=== PATIENT | female | born 1935 | race Caucasian/White ===

== ENCOUNTER 2017-11-28 00:25 | Day surgery (SDC) | payer MEDICARE, BC ==
[2017-11-28] VITALS (7 sets, daily range): BP systolic 101–163; BP diastolic 48–97
[~2017-11-28] VITALS: Ht 172.7 cm; Wt 71.7 kg
[~2017-11-28 00:25] MED LIST: AZI250 PO; CEP500 PO; DOC100 PO; FAM20 PO; FERR159T PO; GUAI480S48 PO; GUALA600 PO; IBU600 PO; LIS5 PO; LOR5 PO; LOR5/325 PO; LOSA25TA50 PO; OND4 PO; PANT40TA65 PO; PROM12.546 PO
[2017-11-28] MEDS ORDERED: PROPOFOL EMUL(*) 10MG/ML 20 ML 40 ML ONE (07:28)
--- NOTE | 2017-11-28 07:29 | Post Operative Progress Note ---
Post Operative Progress Note Date: Nov 28, 2017 Time: 09:43 Surgeon: edmund Anesthesia: dr hughes Pre-Op Diagnosis: anemia Post-Op Diagnosis: normal egd and sigmoid diverticulosis Procedure(s): egd and colonoscopy ALISA RODRIGUEZ MD Nov 28, 2017 07:29
--- NOTE | 2017-11-28 07:30 | Short(Outpt) Discharge Summary ---
Discharge Summary Reason for Hosp/Final Diag: (1) IRON DEFICIENCY ANEMIA SECONDARY TO BLOOD LOSS (CHRONIC) Hospital Course & Plan: egd was normal and colonoscopy revealed diverticulosis in the sigmoid colon Departure Discharge to: Home Discharge Instructions Home Meds Reported Medications Ferrous Sulfate, Dried (IRON) 159 Mg Tablet.er, 130 MG PO QDAY 11/19/17 Pantoprazole Sodium (PANTOPRAZOLE SODIUM) 40 Mg Tablet.dr, 40 MG PO BID, TAB.SR 11/19/17 Losartan Potassium (LOSARTAN POTASSIUM) 25 Mg Tablet, 25 MG PO QDAY 11/19/17 Diet: Regular Activity: As Tolerated ALISA RODRIGUEZ MD Nov 28, 2017 07:30
[2017-11-28] MEDS ORDERED: LIDOCAINE/SOD BICARB 8.4% SYR ID ONE (07:50)
[2017-11-28] MEDS ORDERED: MIDAZOLAM 2 MG/2 ML VIAL IVP ONE (07:50)
[2017-11-28] MEDS ORDERED: NORMOSOL R SOLN(*) 1000 ML BAG 1,000 ML IV PRN (07:50)
--- NOTE | 2017-11-28 14:55 | OPERATIVE REPORT 1 ---
EVENT DATE: November 28, 2017 SURGEON: Humberto Narvaez MD ANESTHESIOLOGIST: Tala Junior MD ANESTHESIA: Sedation PREOPERATIVE DIAGNOSIS Anemia. POSTOPERATIVE DIAGNOSIS Sigmoid diverticulosis. PROCEDURE PERFORMED Colonoscopy. DESCRIPTION OF PROCEDURE The patient was placed in the left lateral decubitus position and given intravenous sedation. Perianal examination revealed some external hemorrhoidal skin tags. No fissures or fistulas. Digital exam was unremarkable. A flexible colonoscope was inserted and advanced to the cecum. She had an excellent bowel prep. Ileocecal valve and base of the cecum were identified. The scope was slowly withdrawn. Care was taken to look behind the haustral folds. No abnormalities were noted in the cecum, right colon, transverse, or descending colon. She had extensive diverticulosis in the sigmoid colon, but no inflammation, no narrowings, and no other abnormalities. The scope was slowly withdrawn. The rectum was normal. The scope was retroflexed, and that appeared to be normal. [facility]
--- NOTE | 2017-11-28 15:05 | OPERATIVE REPORT 1 ---
EVENT DATE: November 28, 2017 SURGEON: Humberto Narvaez MD ANESTHESIOLOGIST: Tala Junior MD ANESTHESIA: Sedation. PREOPERATIVE DIAGNOSIS Anemia. POSTOPERATIVE DIAGNOSIS Normal esophagogastroduodenoscopy. PROCEDURE PERFORMED Esophagogastroduodenoscopy. DESCRIPTION OF PROCEDURE The patient was placed in the left lateral decubitus position and given intravenous sedation. The flexible gastroscope was inserted. The esophagus appeared to be normal and distended nicely. No narrowings, no inflammation, no irritation. The GE junction was at 40 cm and distinct. We entered the gastric remnant. The anastomosis was widely patent. We passed through this and down into the duodenum for quite a number of centimeters. No inflammation or ulceration was noted. The scope was slowly withdrawn. No marginal ulceration was noted. The gastric remnant was normal. The scope was retroflexed, and no abnormalities were noted. The patient tolerated the procedure well with no apparent complications. [facility]
== END 2017-11-28 10:54 | disposition short-term general hospital (02) ==
LOC: OR 00:25
PROVIDERS: ATTEND Surgery
DX: K57.30 Diverticulosis of large intestine without perforation or abscess without bleeding (principal); D64.9 Anemia, unspecified
CPT/HCPCS: 00811; 43235; 45378; J2704

== ENCOUNTER → 2018-03-05 | Outpatient (CLI) | payer MEDICARE, BC ==
[2018-03-05 12:21] LABS: PLATELET COUNT, AUTOMATED 237 K/uL (150-450)
== END ==
LOC: LAB 11:47
PROVIDERS: ATTEND Family Medicine
DX: I10 Essential (primary) hypertension (principal); R53.83 Other fatigue
CPT/HCPCS: 36415; 82040; 82247; 82310; 82374; 82435; 82565; 82947; 84075; 84132; 84155; 84295; 84443; 84450; 84460; 84520; 85025

== ENCOUNTER → 2018-03-11 | Outpatient (CLI) | payer MEDICARE, BC ==
--- NOTE | 2018-03-11 15:11 | RADIOLOGY IMAGING REPORT ---
FACILITY: [facility] [place] PATIENT NAME: Helen Herr : 1935 MR: [id number] V: [id number] EXAM DATE: ORDERING PHYSICIAN: ADRIENNE REYES TECHNOLOGIST: Location: [facility] [place] Patient: Helen Herr : 1935 Visit/Account:[id number] Date of Sevice: 03/11/2018 DEXA Scan Clinical history: Osteopenia. Comparison: None available. LUMBAR SPINE: The bone mineral density (BMD) measured from L1-L4 correlates with a Z-score -0.1 and a T-score of -1 .8 which is osteopenia as defined by the World Health Organization. The corresponding risk of fractu re in the lumbar spine is 3X compared with a young adult reference population. HIP: Bone mineral density (BMD) measured in the Left total hip region correlates with a Z-score 0.2 and a T-score of -1.9 which is osteopenia as defined by the World Health Organization. The corresponding r isk of fracture in the hip is 4X compared with a young adult reference population. Bone mineral density (BMD) measured in the Femoral Neck region measures 0.766 g/cm2. Impression: 1. Lumbar spine: Osteopenia. 2. Left Hip: Osteopenia. 3. Femoral Neck: Bone Mineral Density is 0.766 g/cm2 The next DEXA scan of this patient should include the following sites: L1-L4 and the left hip. FRAX? WHO Fracture Risk Assessment Tool link: <http://www.shef.ac.uk/FRAX/tool.jsp?[email or web address]> PLEASE NOTE: 1) The World Health Organization defines low BMD as follows: T-score Normal > -1 Osteopenia < -1 and > -2.5 Osteoporosis < -2.5 without fractures Established osteoporosis < -2.5 with fractures 2) In general, you may wish to consider: Diagnosis Treatment Follow-up DEXA Normal BMD Prevention 2-3 years Osteopenia Prevention/therapy 1-2 years Osteoporosis Therapy Yearly 3) Fracture risk estimated from the T-score is more accurate for vertebral fractures (often spontane ous) than for hip fractures. Report Dictated By: Tj Bueno DO at 03/11/2018 2:57 PM Report E-Signed By: Tj Bueno DO at 03/11/2018 3:07 PM WSN:[id number]
--- NOTE | 2018-03-12 11:46 | RADIOLOGY IMAGING REPORT ---
FACILITY: [facility] PATIENT NAME: DENISSE MEZA : [id number] MR: [id number] V: [id number] EXAM DATE: ORDERING PHYSICIAN: ADRIENNE REYES TECHNOLOGIST: Viridiana George PROCEDURE: MAMMOGRAM SCREENING LEFT UNILATERAL WITH CAD ASSISTED INTERPRETATION & 3D TOMOSYNTHESIS COMPARISON: Prior mammograms 09/30/12. INDICATIONS: SCREENING FINDINGS: Mildly heterogeneous fibroglandular tissue is seen throughout the Left breast. The parenchymal pattern has remained stable allowing for difference in mammographic technique & patient positioning. There is no evidence of malignant appearing mass, malignant appearing calcifications or other secondary sign of malignancy in the Left breast. DIAGNOSTIC CATEGORY 1--NEGATIVE. RECOMMENDATIONS: ROUTINE MAMMOGRAM AND CLINICAL EVALUATION. IMPRESSION: BIRADS 1: Negative No significant abnormality of the Left breast is seen. Dictated by: Amina Grover M.D. on 03/11/2018 at 15:55 Transcribed by: ESTEBAN on 03/12/2018 at 8:07 Approved by: Amina Grover M.D. on 03/12/2018 at 11:45 [facility]
== END ==
LOC: MAMO 01:00 → EDSTATUS 06:49 → MAMO 08:00 → EDSTATUS 09:15 → MAMO 13:31
PROVIDERS: ATTEND Family Medicine
DX: Z13.820 Encounter for screening for osteoporosis (principal); Z12.31 Encounter for screening mammogram for malignant neoplasm of breast; M85.88 Other specified disorders of bone density and structure, other site
CPT/HCPCS: 77063; 77065; 77080

== ENCOUNTER → 2018-08-06 | Outpatient (REF) | payer MEDICARE, BC ==
[~2018-08-06] MED LIST changes: +LISI5TAB25 PO; -LOSA25TA50 PO; +LOSA25TA52 PO
== END ==
LOC: ZZSENDIN 16:46
PROVIDERS: ATTEND Family Medicine
DX: I10 Essential (primary) hypertension (principal)
CPT/HCPCS: 36415; 82310; 82374; 82435; 82565; 82947; 84132; 84295; 84520

== ENCOUNTER → 2018-08-21 | Outpatient (CLI) | payer MEDICARE, BC | LOC: LAB 13:45 | PROVIDERS: ATTEND Family Medicine | DX: I10 Essential (primary) hypertension (principal) | CPT/HCPCS: 36415; 82310; 82374; 82435; 82565; 82947; 84132; 84295; 84520 ==

== ENCOUNTER → 2018-10-30 | Outpatient (CLI) | payer MEDICARE, BC ==
[~2018-10-30] MED LIST changes: +ACET-2146 PO; +AMLO-111 PO; +CALC-29 PO; +CALC500T6 PO; +LISI-362 PO; +LOSA-51 PO; -LOSA25TA52 PO; +LOSA25TA57 PO; +PNEU0.5D3 IM
== END ==
LOC: LAB 09:25
PROVIDERS: ATTEND Family Medicine
DX: I10 Essential (primary) hypertension (principal)
CPT/HCPCS: 36415; 82310; 82374; 82435; 82565; 82947; 84132; 84295; 84520

== ENCOUNTER → 2018-12-03 | Outpatient (CLI) | payer MEDICARE, BC ==
[~2018-12-03] MED LIST changes: -AMLO-111 PO; +AMLO-125 PO; +LOSA-54 PO
== END ==
LOC: LAB 08:29
PROVIDERS: ATTEND Family Medicine
DX: I10 Essential (primary) hypertension (principal)
CPT/HCPCS: 36415; 82310; 82374; 82435; 82565; 82947; 84132; 84295; 84520

== ENCOUNTER 2018-12-15 08:40 | Inpatient (IN) | payer MEDICARE, BC ==
[~2018-12-15] VITALS: Ht 170.2 cm; Wt 73.9 kg
--- NOTE | 2018-12-15 08:54 | ER Report ---
History and Physical Time Seen By MD: 08:54 Hx. of Stated Complaint: PT REPORTS DIZZINESS, WEAKNESS, BLACK STOOLS, PAIN IN ABD X 2 DAYS HPI/ROS CHIEF COMPLAINT: weakness, dizzy, black and maroon in stools HISTORY OF PRESENT ILLNESS: This is an 83 year old female. She has had two days of black and maroon colored stools. She has been weak and dizzy. She has some lower abdominal pain and lower back pain as well. No fevers or chills. She has a history of peptic ulcer disease and GI bleeding in the past. Last time was here at [facility], admitted and then transferred because of a pulmonary embolism at the same time. She had endoscopy and a derrick removable filter placed that has since been removed. She has no shortness of breath. No other bleeding such as bruising, blood in urine, or nosebleeds. She denies having fevers or chills. No cough. No chest pain. She is not on any blood thinners or aspirin at this time. Allergies: Coded Allergies: nut - unspecified (Unverified Allergy, Severe, Throat swelling and hives, 12/15/18) brazil nuts Uncoded Allergies: Figgs (Allergy, Severe, Throat Swelling and Hives, 03/05/18) Home Meds Active Scripts Losartan/Hydrochlorothiazide (LOSARTAN-HCTZ 100-25 MG TAB) 1 Each Tablet, 1 EACH PO QDAY for 90 Days, #90 TAB Prov:ADRIENNE REYES MD 12/03/18 Reported Medications Calcium Carbonate/Vitamin D3 (Calcium 600 + Vit D 800 Tab) 1 Each Tablet, 1 TAB PO DAILY 09/17/18 Acetaminophen 500 Mg Tab (ACETAMINOPHEN EXTRA STRENGTH) 500 Mg Tablet, 2 TAB PO BID, TAB 09/03/18 Reviewed Nurses Notes: Yes Hx Smoking: Yes (Smoked some in college and quit more than 50 years ago) Smoking Status: Former Smoker Exposure to Second Hand Smoke?: Yes Hx Substance Use Disorder: No Hx Alcohol Use: Yes Constitutional Vital Sign - Last 24 Hours 12/15/18 12/15/18 12/15/18 12/15/18 08:45 08:46 09:00 09:15 Temp 97.2 Pulse 98 86 76 Resp 18 12 B/P (MAP) 133/72 133/72 (92) Pulse Ox 88 90 90 O2 Delivery Room Air 12/15/18 12/15/18 09:45 09:46 Pulse 88 B/P (MAP) 132/71 (91) Pulse Ox 91 Physical Exam General Appearance: The patient is alert. No acute distress. Eyes: Pupils are equal, round. No pallor, injection or icterus. ENT: Mucous membranes are moist. Normal oral mucosa. Posterior oropharynx is normal. Neck: Supple and non tender. Respiratory: Lungs are clear to auscultation. Cardiovascular: Regular rate and rhythm. No murmurs, gallops or rubs. Normal capillary refill. No edema. Gastrointestinal: Abdomen is soft, nontender to palpation. Nondistended. No rebound or guarding. No masses or organomegaly. Normal active bowel sounds. No costovertebral angle tenderness with percussion. Neurological: Alert and oriented x3. No focal neurologic deficits Skin: Warm and dry. No rashes. Musculoskeletal: Extremities are nontender. No tenderness in palpation of the cervical, thoracic and lumbar spine, or the paraspinous areas of the back. DIFFERENTIAL DIAGNOSIS: After history and physical exam, differential diagnosis was considered for patient with abdominal pain, melena, weakness, likely due to GI bleeding with history of peptic ulcer disease in the past. Medical Decision Making Data Points Result Diagram: 12/15/18 0847 12/15/18 0847 Laboratory Hematology Test 12/15/18 08:47 12/15/18 09:05 12/15/18 09:35 Red Blood Count 3.62 M/uL (4.17-5.56) Mean Corpuscular Volume 89.6 fL (80.0-96.0) Mean Corpuscular Hemoglobin 29.2 pg (26.0-33.0) Mean Corpuscular Hemoglobin Concent 32.6 g/dL (32.0-36.0) Red Cell Distribution Width 15.8 % (11.5-14.5) Mean Platelet Volume 7.4 fL (7.2-11.1) Neutrophils (%) (Auto) 47.9 % (39.4-72.5) Lymphocytes (%) (Auto) 34.6 % (17.6-49.6) Monocytes (%) (Auto) 13.9 % (4.1-12.4) Eosinophils (%) (Auto) 2.6 % (0.4-6.7) Basophils (%) (Auto) 1.0 % (0.3-1.4) Nucleated RBC Relative Count (auto) 0.1 /100WBC Neutrophils # (Auto) 1.5 K/uL (2.0-7.4) Lymphocytes # (Auto) 1.1 K/uL (1.3-3.6) Monocytes # (Auto) 0.4 K/uL (0.3-1.0) Eosinophils # (Auto) 0.1 K/uL (0.0-0.5) Basophils # (Auto) 0.0 K/uL (0.0-0.1) Nucleated RBC Absolute Count (auto) 0.00 K/uL Prothrombin Time 13.6 seconds (12.0-14.4) Prothromb Time International Ratio 1.03 Activated Partial Thromboplast Time 29 seconds (23-35) Sodium Level 130 mmol/L (137-145) Potassium Level 5.0 mmol/L (3.5-5.0) Chloride Level 103 mmol/L (98-107) Carbon Dioxide Level 22 mmol/L (22-31) Blood Urea Nitrogen 84 mg/dl (7-18) Creatinine 1.10 mg/dl (0.52-1.04) Glomerular Filtration Rate Calc 47.2 Random Glucose 107 mg/dl (75-110) Calcium Level 8.9 mg/dl (8.4-10.2) Total Bilirubin 0.3 mg/dl (0.2-1.3) Aspartate Amino Transf (AST/SGOT) 28 U/L (0-35) Alanine Aminotransferase (ALT/SGPT) 22 U/L (0-56) Alkaline Phosphatase 68 U/L (0-126) Total Protein 6.0 g/dl (6.3-8.2) Albumin 3.3 g/dl (3.5-5.0) Stool Occult Blood (IFOB) Positive (NEGATIVE) Urine Color Straw Urine Clarity Clear Urine pH 5.0 pH (4.8-9.5) Urine Specific [place] 1.014 Urine Protein Negative mg/dL (NEGATIVE) Urine Glucose (UA) Negative mg/dL (NEGATIVE) Urine Ketones Negative mg/dL (NEGATIVE) Urine Blood Negative (NEGATIVE) Urine Nitrite Negative (NEGATIVE) Urine Bilirubin Negative (NEGATIVE) Urine Urobilinogen Negative mg/dL (0.2-1.9) Urine Leukocyte Esterase Negative (NEGATIVE) Urine RBC <1 /HPF (0-2/HPF) Urine WBC 1 /HPF (0-5/HPF) Urine Squamous Epithelial Cells Moderate /LPF (</=FEW) Urine Bacteria Negative /HPF (NONE-FEW) Urine Mucus None /HPF (NONE-FEW) Chemistry Test 12/15/18 08:47 12/15/18 09:05 12/15/18 09:35 White Blood Count 3.2 k/uL (4.5-11.0) Red Blood Count 3.62 M/uL (4.17-5.56) Hemoglobin 10.6 g/dL (12.0-16.0) Hematocrit 32.4 % (34.0-47.0) Mean Corpuscular Volume 89.6 fL (80.0-96.0) Mean Corpuscular Hemoglobin 29.2 pg (26.0-33.0) Mean Corpuscular Hemoglobin Concent 32.6 g/dL (32.0-36.0) Red Cell Distribution Width 15.8 % (11.5-14.5) Platelet Count 246 K/uL (150-450) Mean Platelet Volume 7.4 fL (7.2-11.1) Neutrophils (%) (Auto) 47.9 % (39.4-72.5) Lymphocytes (%) (Auto) 34.6 % (17.6-49.6) Monocytes (%) (Auto) 13.9 % (4.1-12.4) Eosinophils (%) (Auto) 2.6 % (0.4-6.7) Basophils (%) (Auto) 1.0 % (0.3-1.4) Nucleated RBC Relative Count (auto) 0.1 /100WBC Neutrophils # (Auto) 1.5 K/uL (2.0-7.4) Lymphocytes # (Auto) 1.1 K/uL (1.3-3.6) Monocytes # (Auto) 0.4 K/uL (0.3-1.0) Eosinophils # (Auto) 0.1 K/uL (0.0-0.5) Basophils # (Auto) 0.0 K/uL (0.0-0.1) Nucleated RBC Absolute Count (auto) 0.00 K/uL Prothrombin Time 13.6 seconds (12.0-14.4) Prothromb Time International Ratio 1.03 Activated Partial Thromboplast Time 29 seconds (23-35) Glomerular Filtration Rate Calc 47.2 Calcium Level 8.9 mg/dl (8.4-10.2) Total Bilirubin 0.3 mg/dl (0.2-1.3) Aspartate Amino Transf (AST/SGOT) 28 U/L (0-35) Alanine Aminotransferase (ALT/SGPT) 22 U/L (0-56) Alkaline Phosphatase 68 U/L (0-126) Total Protein 6.0 g/dl (6.3-8.2) Albumin 3.3 g/dl (3.5-5.0) Stool Occult Blood (IFOB) Positive (NEGATIVE) Urine Color Straw Urine Clarity Clear Urine pH 5.0 pH (4.8-9.5) Urine Specific [place] 1.014 Urine Protein Negative mg/dL (NEGATIVE) Urine Glucose (UA) Negative mg/dL (NEGATIVE) Urine Ketones Negative mg/dL (NEGATIVE) Urine Blood Negative (NEGATIVE) Urine Nitrite Negative (NEGATIVE) Urine Bilirubin Negative (NEGATIVE) Urine Urobilinogen Negative mg/dL (0.2-1.9) Urine Leukocyte Esterase Negative (NEGATIVE) Urine RBC <1 /HPF (0-2/HPF) Urine WBC 1 /HPF (0-5/HPF) Urine Squamous Epithelial Cells Moderate /LPF (</=FEW) Urine Bacteria Negative /HPF (NONE-FEW) Urine Mucus None /HPF (NONE-FEW) Coagulation Test 12/15/18 08:47 Prothrombin Time 13.6 seconds Prothromb Time International Ratio 1.03 Activated Partial Thromboplast Time 29 seconds Urinalysis Test 12/15/18 09:35 Urine Color Straw Urine Clarity Clear Urine pH 5.0 pH (4.8-9.5) Urine Specific [place] 1.014 Urine Protein Negative mg/dL (NEGATIVE) Urine Glucose (UA) Negative mg/dL (NEGATIVE) Urine Ketones Negative mg/dL (NEGATIVE) Urine Blood Negative (NEGATIVE) Urine Nitrite Negative (NEGATIVE) Urine Bilirubin Negative (NEGATIVE) Urine Urobilinogen Negative mg/dL (0.2-1.9) Urine Leukocyte Esterase Negative (NEGATIVE) Urine RBC <1 /HPF (0-2/HPF) Urine WBC 1 /HPF (0-5/HPF) Urine Squamous Epithelial Cells Moderate /LPF (</=FEW) Urine Bacteria Negative /HPF (NONE-FEW) Urine Mucus None /HPF (NONE-FEW) EKG/Imaging Imaging CT ABDOMEN PELVIS W/O CON HISTORY: Abdominal pain. Melena. TECHNIQUE: Axial images were obtained through the abdomen and pelvis without intravenous contrast . One of the following dose optimization techniques was utilized in the performance of this exam: automated exposure control; adjustment of the mA and/or kv according to patient size; or use of iterative reconstruction technique. Specific details can be referenced in the facility's radiology CT exam operational policy. CONTRAST: None COMPARISON: CT abdomen/pelvis 03/06/2011 FINDINGS: Visualized lung bases: Left lower lobe calcified granuloma. Hepatobiliary: 2.2 x 2.1 cm cystic lesion within the left lobe (image 26). Multiple gallstones. Spleen: Negative. Adrenals: Stable 2.4 x 1.5 cm left adrenal gland nodule consistent with an adenoma. Stable 1.7 x 1.0 cm right adrenal gland nodule consistent with an adenoma. Pancreas: Negative. Kidneys/ureters/bladder: Interval left nephrectomy. No radiopaque right renal or right ureteral calculus. No right hydronephrosis. Bowel/peritoneum/mesentery: Moderate colonic diverticulosis without acute inflammatory change. No bowel obstruction, free air or ascites. Gastrojejunostomy noted. Vessels: Moderate arterial calcifications Lymph nodes: Negative. Pelvic genitourinary: Hysterectomy Bones/body wall: Negative. Other findings: None significant IMPRESSION: 1. No acute inflammatory process within the abdomen and pelvis. 2. Gallstones. 3. Moderate colonic diverticulosis. 4. 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 Report Dictated By: Wyatt Ching MD at 12/15/2018 9:47 AM ED Course/Re-evaluation Clinical Indication for ER IV: Hydration, IV Access ED Course Patient has a positive occult blood in the stool which is melanotic on exam. H&H shows a hemoglobin of 10.6, down from 13 more recently. History of peptic ulcer disease suggests this is most likely upper GI in nature. I discussed the case with Dr. Unger. He is not correctional maintenance technician, but will be available in the morning. He asked to go ahead and have her take clear liquids and nothing by mouth after midnight and he would be able to do an upper endoscopy tomorrow morning. I also talked to our hospitalist, Dr. Sampson, who accepted the patient for admission. I did talk to the patient about risks associated with staying here at [facility] rather than transfer where we would not have a surgeon available immediately to do an endoscopy or treat bleeding should it accelerate and worsen. The patient expresses understanding of this but still would like to stay here at [facility]. Decision to Disposition Date: Dec 15, 2018 Decision to Disposition Time: 11:06 Depart Departure Latest Vital Signs Vital Signs Date Time Temp Pulse Resp B/P (MAP) Pulse Ox O2 Delivery O2 Flow Rate FiO2 12/15/18 09:46 132/71 (91) 12/15/18 09:45 88 91 12/15/18 09:15 12 12/15/18 08:45 97.2 Room Air Impression: Primary Impression: Upper gastrointestinal hemorrhage Additional Impressions: PUD (peptic ulcer disease) IRON DEFICIENCY ANEMIA SECONDARY TO BLOOD LOSS (CHRONIC) Condition: Improved Disposition: Admitted from ER Referrals: ADRIENNE REYES MD (PCP) Problem Qualifiers ANA PASTRANA MD Dec 15, 2018 08:54
[2018-12-15 09:13] LABS: PLATELET COUNT, AUTOMATED 246 K/uL (150-450)
[2018-12-15 09:22] LABS: INR 1.03
--- NOTE | 2018-12-15 10:01 | RADIOLOGY IMAGING REPORT ---
FAC[place] [facility] [place]IENT NAME: Helen Herr : 1935 MR: [id number] V: [id number] EXAM DATE: ORDERING PHYSICIAN: ANA PASTRANA TECHNOLOGIST: Location: [facility] Patient: Helen Herr : 1935 Visit/Account:[id number] Date of Sevice: 12/15/2018 CT ABDOMEN PELVIS W/O CON HISTORY: Abdominal pain. Melena. TECHNIQUE: Axial images were obtained through the abdomen and pelvis without intravenous contrast . One of the following dose optimization techniques was utilized in the performance of this exam: autom ated exposure control; adjustment of the mA and/or kv according to patient size; or use of iterative reconstruction technique. Specific details can be referenced in the facility's radiology CT exam oper ational policy. CONTRAST: None COMPARISON: CT abdomen/pelvis 03/06/2011 FINDINGS: Visualized lung bases: Left lower lobe calcified granuloma. Hepatobiliary: 2.2 x 2.1 cm cystic lesion within the left lobe (image 26). Multiple gallstones. Spleen: Negative. Adrenals: Stable 2.4 x 1.5 cm left adrenal gland nodule consistent with an adenoma. Stable 1.7 x 1. 0 cm right adrenal gland nodule consistent with an adenoma. Pancreas: Negative. Kidneys/ureters/bladder: Interval left nephrectomy. No radiopaque right renal or right ureteral deni culus. No right hydronephrosis. Bowel/peritoneum/mesentery: Moderate colonic diverticulosis without acute inflammatory change. No b owel obstruction, free air or ascites. Gastrojejunostomy noted. Vessels: Moderate arterial calcifications Lymph nodes: Negative. Pelvic genitourinary: Hysterectomy Bones/body wall: Negative. Other findings: None significant IMPRESSION: 1. No acute inflammatory process within the abdomen and pelvis. 2. Gallstones. 3. Moderate colonic diverticulosis. 4. 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 Report Dictated By: Wyatt Ching MD at 12/15/2018 9:47 AM Report E-Signed By: Wyatt Ching MD at 12/15/2018 9:55 AM [id number]
[2018-12-15] MEDS ORDERED: PANTOPRAZOLE SOD(*)40 MG VIAL 80 MG in NS(*) 0.9% 100 ML BAG 100 ML IVPB ONE (11:05)
[2018-12-15 12:02] VITALS: BP 118/54
[2018-12-15] MEDS ORDERED: NS(*) 0.9% 500 ML BAG 500 ML IV PRN (14:50)
--- NOTE | 2018-12-15 16:06 | History & Physical ---
History of Present Illness History of Present Illness 83yo female with h/o PUD, HTN and PE who came to the ER for bloody stools and dizziness. She was in her normal state of health until 2 days ago. She had 4 bloody/black BM throughout the day. She might have had some abdominal pain, but it was very mild and she thought it was related to her back. Yesterday, she bloody/black stools about every 2 hours with the last one being about 9pm. She hasn't had anything since. Today, her daughter came to visit. The patient was still in bed and became very dizzy with trying to get to the bathroom, so was brought in. She denies cp/sob/n/v. She doesn't take ASA or NSAIDs. She hasn't been on anticoagulation for the PE for over a year. She had a partial gastrect bharath in her teens for a GI bleed. About 2 years ago, she had a upper GI bleed that required cautery. That event was complicated by a PE, so she was transferred and had to have an IVC placed. History Problems: (1) Pulmonary embolism Status: Resolved (2) Adenocarcinoma of kidney Status: Chronic (3) S/p nephrectomy Status: Resolved (4) History of breast cancer (5) Osteoporosis (6) OA (osteoarthritis) (7) Hypertension Status: Acute (8) PUD (peptic ulcer disease) Status: Chronic (9) Upper gastrointestinal hemorrhage Status: Acute Home Meds Active Scripts Losartan/Hydrochlorothiazide (LOSARTAN-HCTZ 100-25 MG TAB) 1 Each Tablet, 1 EACH PO QDAY for 90 Days, #90 TAB Prov:ADRIENNE REYES MD 12/03/18 Reported Medications Calcium Carbonate/Vitamin D3 (Calcium 600 + Vit D 800 Tab) 1 Each Tablet, 1 TAB PO DAILY 09/17/18 Acetaminophen 500 Mg Tab (ACETAMINOPHEN EXTRA STRENGTH) 500 Mg Tablet, 2 TAB PO BID, TAB 09/03/18 Allergies: Coded Allergies: nut - unspecified (Unverified Allergy, Severe, Throat swelling and hives, 12/15/18) brazil nuts Uncoded Allergies: Figgs (Allergy, Severe, Throat Swelling and Hives, 03/05/18) Patient History: FH: cancer FH: chemotherapy FH: colon cancer BROTHER OR SISTER FH: emphysema MOTHER, , Age:82 FH: lung cancer FATHER BROTHER OR SISTER FH: ovarian cancer BROTHER OR SISTER Hx Smoking: Yes (Smoked some in college and quit more than 50 years ago) Smoking Status: Former Smoker Exposure to Second Hand Smoke?: Yes Caffeine Intake: Coffee, Tea Caffeine/Cups Per Day: 1x/week Hx Alcohol Use: Yes Alcohol Used: Beer Hx Substance Use Disorder: No Social Drug Use: Never Review of Systems All Systems Reviewed/Normal: Yes, Except as Noted Exam Vital Signs Vital Signs Date Time Temp Pulse Resp B/P (MAP) Pulse Ox O2 Delivery O2 Flow Rate FiO2 12/15/18 12:30 97 Nasal Cannula 1.5 12/15/18 12:02 98.5 72 18 118/54 (75) General Appearance: Alert, Awake, No Acute Distress (Pale) Neuro: No Gross deficits ENT: Moist Mucous Membranes Cardiovascular: Regular Rate and Rhythm Respiratory: Clear to Auscultation GI: Abd Soft and Non-Tender Extremities: No Edema Integumentary: No Jaundice, No Cyanosis Medical Decision Making Data Points Result Diagram: 12/15/18 0847 12/15/18 0847 Item Value Date Time Urine RBC <1 /HPF 12/15/18 0935 Urine WBC 1 /HPF 12/15/18 0935 Urine Squamous Epithelial Cells Moderate /LPF H 12/15/18 0935 Urine Leukocyte Esterase Negative 12/15/18 0935 Urine Bacteria Negative /HPF 12/15/18 0935 Hemoglobin 10.6 g/dL L 12/15/18 0847 Hemoglobin 14.9 g/dL 03/05/18 1155 Platelet Count 246 K/uL 12/15/18 0847 Platelet Count 237 K/uL 03/05/18 1155 White Blood Count 3.7 k/uL L 03/05/18 1155 White Blood Count 3.2 k/uL L 12/15/18 0847 Stool Occult Blood (IFOB) Positive H 12/15/18 0905 Prothromb Time International Ratio 1.03 12/15/18 0847 Creatinine 1.00 mg/dl 12/03/18 1050 Creatinine 1.20 mg/dl H 10/30/18 1055 EKG / Imaging Imaging Abd/Pelvis CT - 1. No acute inflammatory process within the abdomen and pelvis. 2. Gallstones. 3. Moderate colonic diverticulosis. 4. 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 Assessment and Plan Problems: (1) Upper gastrointestinal hemorrhage Status: Acute Assessment & Plan: She presented with 2 days of black bloody stools and one day of dizziness. Her last BM was at 2100 the day before admission. BP and P are stable. Hgb is down from a couple of months ago. She has been started on a Pro tonix drip after the bolus. Will start Carafate. Dr. Unger is planning on doing an EGD tomorrow. The patient had a normal EGD about a year ago. She has had a previous partial gastrectomy in her teens for a GI bleed and had to have cautery to stop a bleed 2 years ago. Will not do H. Pylori testing because it likely will be tested with biopsy. (2) Hypertension Status: Acute Assessment & Plan: Chronically on HCTZ and lisinopril. Both are on hold for now. (3) Pulmonary embolism Status: Resolved Assessment & Plan: She was found to have multiple small bilateral PE on 11/18/17. She had to have an IVC filter placed secondary a GI bleed. She was on anticoagulation for a few months, but nothing since. The filter was removed. (4) S/p nephrectomy Status: Resolved Assessment & Plan: Baseline creatinine is 0.9-1.2 Copies to: ADRIENNE REYES MD; ANNELIESE UNGER ; Venous Thromboembolism Antithrombotics Is Pt On Any Antithrombotics?: No Prophylaxis Tx Contraindicated Pharmacological Contraindicati: Active Bleeding Exam Sepsis Risk: No Definite Risk NIRANJAN SIERRA MD Dec 15, 2018 16:06
[2018-12-15] MEDS: PANTOPRAZOLE SOD(*)40 MG VIAL 80 MG in NS(*) 0.9% 100 ML BAG 100 ML IV SCH (16:20)
[2018-12-15 16:21] VITALS: BP 99/48
[2018-12-15 16:25] LABS: PLATELET COUNT, AUTOMATED 221 K/uL (150-450)
[2018-12-15] MEDS: SUCRALFATE 1 GM TAB PO SCH ×2 (16:33→20:51)
[2018-12-15 19:57] VITALS: BP 105/53
[2018-12-15 23:19] VITALS: BP 117/62
[2018-12-15] MEDS: NS(*) 0.9% 1000 ML BAG 1,000 ML IV PRN (23:20)
[2018-12-16] VITALS (17 sets, daily range): BP systolic 128–170; BP diastolic 59–90; Ht 170.2 cm; Wt 73.9 kg
[2018-12-16] MEDS: PANTOPRAZOLE SOD(*)40 MG VIAL 80 MG in NS(*) 0.9% 100 ML BAG 100 ML IV SCH ×3 (02:45→20:38)
[2018-12-16 06:31] LABS: PLATELET COUNT, AUTOMATED 173 K/uL (150-450)
--- NOTE | 2018-12-16 07:37 | General Surgery Consultation ---
History of Present Illness Reason for Consult melena Chief Complaint melena History of Present Illness 83 yo f with melena for a couple of days. pt has also felt dizzy and light headed. no syncope. occasional mild abd pain. similar occurrence 2 yrs ago and egd with cauterization was performed. pt had partial gastrectomy for pud about 6 yrs ago. colonoscopy performed about 2 yrs ago found diverticulosis. no nsaids. no blood thinners. History Home Meds Active Scripts Losartan/Hydrochlorothiazide (LOSARTAN-HCTZ 100-25 MG TAB) 1 Each Tablet, 1 EACH PO QDAY for 90 Days, #90 TAB Prov:ADRIENNE REYES MD 12/03/18 Reported Medications Calcium Carbonate/Vitamin D3 (Calcium 600 + Vit D 800 Tab) 1 Each Tablet, 1 TAB PO DAILY 09/17/18 Acetaminophen 500 Mg Tab (ACETAMINOPHEN EXTRA STRENGTH) 500 Mg Tablet, 2 TAB PO BID, TAB 09/03/18 Allergies: Coded Allergies: nut - unspecified (Unverified Allergy, Severe, Throat swelling and hives, 12/15/18) brazil nuts Uncoded Allergies: Figgs (Allergy, Severe, Throat Swelling and Hives, 03/05/18) Family History: FH: cancer FH: chemotherapy FH: colon cancer BROTHER OR SISTER FH: emphysema MOTHER, , Age:82 FH: lung cancer FATHER BROTHER OR SISTER FH: ovarian cancer BROTHER OR SISTER Review of Systems Constitutional: Other (per hpi) Exam Vital Signs Vital Signs Date Time Temp Pulse Resp B/P (MAP) Pulse Ox O2 Delivery O2 Flow Rate FiO2 12/16/18 03:19 92 12/16/18 02:44 97.9 18 137/90 (106) 90 Nasal Cannula 1.0 General Appearance: Alert, Awake, No Acute Distress Neuro: No Gross deficits Eyes: Other (per, eomi) Cardiovascular: Other (reg rate) Respiratory: No Respiratory Distress GI: Abd Soft and Non-Tender Extremities: Other (scds) Integumentary: Skin Intact without Lesion / Mass Psych: Alert & Oriented X3, Appropriate Mood & Affect Medical Decision Making Data Points Result Diagram: 12/16/1854512/16/18545 Assessment and Plan Problems: (1) Upper gastrointestinal hemorrhage Status: Acute Assessment & Plan: ppi, carafate, egd today Venous Thromboembolism Antithrombotics Is Pt On Any Antithrombotics?: No ANNELIESE SANTILLAN Dec 16, 2018 07:37
[2018-12-16] MEDS: SUCRALFATE 1 GM TAB PO SCH ×4 (08:22→20:38)
[2018-12-16] MEDS ORDERED: NS(*) 0.9% 500 ML BAG 500 ML IV PRN (08:55)
[2018-12-16] MEDS: NS(*) 0.9% 1000 ML BAG 1,000 ML IV PRN (09:17)
[2018-12-16] MEDS ORDERED: NORMOSOL R SOLN(*) 1000 ML BAG 1,000 ML IV ONE (09:17)
--- NOTE | 2018-12-16 09:28 | Hospitalist Progress Note ---
Subjective Progress Notes Subjective This patient was admitted for GI bleeding. She had no acute events overnight. Patient Complains of: Cardiovascular: No: Chest Pain Respiratory: No: Shortness of Breath Physical Exam Vital Signs Date Time Temp Pulse Resp B/P (MAP) Pulse Ox O2 Delivery O2 Flow Rate FiO2 12/16/18 07:44 96 2.0 12/16/18 07:39 99 12/16/18 07:38 97.5 22 136/63 (87) Nasal Cannula Intake and Output 12/16/18 07:00 Intake Total 450 ml Balance 450 ml Intake Oral 250 ml IV Total 200 ml # Voids 6 Cardiovascular: Regular Rate and Rhythm Respiratory: Clear to Auscultation Result Diagram: 12/16/1854512/16/18545 Assessment and Plan Problems: (1) Upper gastrointestinal hemorrhage Status: Acute Assessment & Plan: She presented with 2 days of black bloody stools and one day of dizziness. She is on treatment with high dose Protonix and Carafate. She is scheduled for an EGD today. (2) Anemia due to GI blood loss Assessment & Plan: She is scheduled to receive 2 units of red cells today. (3) Hypertension Status: Acute Assessment & Plan: She is on chronic treatment with HCTZ and lisinopril. Both are on hold for now. (4) Pulmonary embolism Status: Resolved Assessment & Plan: She was found to have multiple small bilateral PE on 11/18/17. She had to have an IVC filter placed secondary a GI bleed. She was on anticoagulation for a few months, but nothing since. The filter was removed. (5) S/p nephrectomy Status: Resolved Assessment & Plan: Baseline creatinine is 0.9-1.2 Exam Sepsis Risk: Sepsis Risk Problem Qualifiers (1) Hypertension: Hypertension type: essential hypertension Qualified Codes: I10 - Essential (primary) hypertension TANI TERRAZAS DO Dec 16, 2018 09:28
[2018-12-16] MEDS ORDERED: FUROSEMIDE 20 MG/2 ML VIAL IVP ONE (11:00)
--- NOTE | 2018-12-16 11:00 | NUR ---
PT. TRANSFERRED FROM [facility] TO [facility]. VSS. CONSENTS SIGNED.
--- NOTE | 2018-12-16 11:30 | NUR ---
DR. CACERES INFORMED OF LOW H AND H. OKAY TO WAIT ON TRANSFUSION.
[2018-12-16] MEDS ORDERED: KETAMINE HCL 500 MG/10 ML VIAL ONE (11:44)
[2018-12-16] MEDS ORDERED: PROPOFOL EMUL(*) 10MG/ML 20 ML 40 ML ONE (11:44)
[2018-12-17] MEDS: NS(*) 0.9% 1000 ML BAG 1,000 ML IV PRN (03:36)
[2018-12-17 03:37] VITALS: BP 131/65
[2018-12-17] MEDS: PANTOPRAZOLE SOD(*)40 MG VIAL 80 MG in NS(*) 0.9% 100 ML BAG 100 ML IV SCH (06:13)
[2018-12-17 06:46] LABS: PLATELET COUNT, AUTOMATED 165 K/uL (150-450)
[2018-12-17 08:06] VITALS: BP 134/71
[2018-12-17] MEDS: SUCRALFATE 1 GM TAB PO SCH ×4 (08:17→21:35)
[2018-12-17] MEDS ORDERED: FERROUS SULFATE 325 MG TAB PO SCH (11:20)
[2018-12-17] MEDS ORDERED: ASCORBIC ACID 500 MG TAB PO SCH (11:20)
--- NOTE | 2018-12-17 11:30 | Hospitalist Progress Note ---
Subjective Progress Notes Subjective No more reported bloody stools. The patient would like to have her diet advanced. Physical Exam Vital Signs Date Time Temp Pulse Resp B/P (MAP) Pulse Ox O2 Delivery O2 Flow Rate FiO2 12/17/18 08:23 92 Nasal Cannula 1.0 12/17/18 08:06 97.7 75 16 134/71 (92) Intake and Output 12/17/18 07:00 Intake Total 5222.1 ml Balance 5222.1 ml Intake Oral 1040 ml IV Total 3332.1 ml Blood Product 850 ml # Voids 9 General Appearance: Alert, Awake, No Acute Distress (pale. In good spirits) GI: Soft and Non-Tender Result Diagram: 12/17/1861012/17/18610 Assessment and Plan Problems: (1) Upper gastrointestinal hemorrhage Status: Acute Assessment & Plan: She presented with 2 days of black/bloody stools and one day of dizziness. She was found (by EGD on 12/16) to have a pulsating, bleeding vessel in the jejunum, which is her first part of the intestine after stomach secondary to a previous gastrectomy in her teens for a GI bleed. The vessel was injected with epinephrine and cauterized. She is on treatment with continuous infusion Protonix and Carafate. Will switch to oral Protonix bid. She will need lifelong acid suppression. Advance diet. (2) Anemia due to GI blood loss Assessment & Plan: She is tolerated 2 units of red cells on 12/17. Hgb up to 9.4 from 8.0. Will try some every other day iron with Vitamin C to help replenish blood stores. (3) Hypertension Status: Acute Assessment & Plan: She is on chronic treatment with HCTZ and lisinopril. Both are on hold for now. (4) Pulmonary embolism Status: Resolved Assessment & Plan: She was found to have multiple small bilateral PE on 11/18/17. She had to have an IVC filter placed secondary a GI bleed. She was on anticoagulation for a few months, but nothing since. The filter was removed. She has SCD's for prophylaxis secondary to bleeding risk. (5) S/p nephrectomy Status: Resolved Assessment & Plan: Baseline creatinine is 0.9-1.2 Exam Sepsis Risk: No Definite Risk Problem Qualifiers (1) Hypertension: Hypertension type: essential hypertension Qualified Codes: I10 - Essential (primary) hypertension NIRANJAN SIERRA MD Dec 17, 2018 11:30
[2018-12-17 11:40] VITALS: BP 138/76
[2018-12-17] MEDS: PANTOPRAZOLE SOD 40 MG TABEC PO SCH ×2 (12:20→21:35)
--- NOTE | 2018-12-17 12:39 | General Surgery Progress Note ---
Subjective Progress Notes Subjective no bm. no acute events. Physical Exam Vital Signs Date Time Temp Pulse Resp B/P (MAP) Pulse Ox O2 Delivery O2 Flow Rate FiO2 12/17/18 11:40 98.6 68 16 138/76 (96) 95 Nasal Cannula 1.0 Intake and Output 12/17/18 06:59 Intake Total 5222.1 ml Balance 5222.1 ml Intake Oral 1040 ml IV Total 3332.1 ml Blood Product 850 ml # Voids 9 General Appearance: No Acute Distress Cardiovascular: Other (reg rate) GI: Other (abd soft) Result Diagram: 12/17/18 0611 12/17/18 06 Assessment and Plan Problems: (1) Upper gastrointestinal hemorrhage Status: Acute Assessment & Plan: ppi, carafate, egd today 12/17/18: doing well. no bm. no drop in hb. cont ppi, carafate. adat. likely home tomorrow. Exam Sepsis Risk: No Definite Risk ANNELIESE SANTILLAN Dec 17, 2018 12:39
[2018-12-17 14:00] VITALS: BP 124/72
[2018-12-17 19:56] VITALS: BP 142/71
[2018-12-18 03:39] VITALS: BP 142/71
[2018-12-18 03:43] VITALS: BP 126/84
[2018-12-18 03:45] VITALS: BP 126/68
[2018-12-18 07:01] LABS: PLATELET COUNT, AUTOMATED 174 K/uL (150-450)
[2018-12-18 08:42] VITALS: BP 147/69
[2018-12-18] MEDS: PANTOPRAZOLE SOD 40 MG TABEC PO SCH (08:58)
[2018-12-18] MEDS: SUCRALFATE 1 GM TAB PO SCH ×2 (08:58→13:24)
[2018-12-18] MEDS ORDERED: INFLUENZA VIRUS VAC 0.5ML SYR IM ONLY ONE (09:00)
[2018-12-18 11:49] VITALS: BP 154/78
[2018-12-18 12:13] LABS: PLATELET COUNT, AUTOMATED 188 K/uL (150-450)
[2018-12-18] MEDS ORDERED: ASCO-182 PO (12:52)
[2018-12-18] MEDS ORDERED: FERR-53 PO (12:52)
[2018-12-18] MEDS ORDERED: SUCR1TAB51 PO (12:52)
[2018-12-18] MEDS ORDERED: PANT40TA65 PO (12:52)
--- NOTE | 2018-12-18 12:59 | Hospitalist Depart ---
Discharge Summary Reason for Hosp/Final Diag: (1) Upper gastrointestinal hemorrhage Status: Acute Hospital Course & Plan: She presented with 2 days of black/bloody stools and one day of dizziness. She was found (by EGD on 12/16) to have a pulsating, bleeding vessel in the jejunum, which is her first part of the intestine after stomach secondary to a previous gastrectomy in her teens for a GI bleed. The vessel was injected with epinephrine and cauterized. She is on treatment with continuous infusion Protonix and Carafate. She was switched to oral Protonix bid. She will need lifelong acid suppression. She has been tolerating a normal diet. She will continue Carafate and Protonix. She will follow up with Dr. Kvng singh next week in the office. (2) Anemia due to GI blood loss Hospital Course & Plan: She has tolerated 2 units of red cells on 12/17. Hgb up to 9.1 from 8.0. She will try some every other day iron with Vitamin C to help replenish blood stores. She will get CBC drawn next week and follow up with Dr. Reyes. (3) Hypertension Status: Acute Hospital Course & Plan: She is on chronic treatment with HCTZ and lisinopril. These were held during admission. She will resume her usual regimen at home. (4) Pulmonary embolism Status: Resolved Hospital Course & Plan: She was found to have multiple small bilateral PE on 11/18/17. She had to have an IVC filter placed secondary a GI bleed. She was on anticoagulation for a few months, but nothing since. The filter was removed. She has SCD's for prophylaxis secondary to bleeding risk. (5) S/p nephrectomy Status: Resolved Hospital Course & Plan: Baseline creatinine is 0.9-1.2 Departure Latest Vital Signs Vital Signs 12/18/18 12/18/18 09:13 11:49 Temp 97.8 Pulse 73 Resp 16 B/P (MAP) 154/78 (103) Pulse Ox 91 O2 Delivery Room Air O2 Flow Rate 0.5 Weight (Pounds): 163 Result Diagram: 12/18/18 1209 12/18/18 0696 Condition: Improved Discharge: Home, Self Care Discharge Instructions Home Meds Active Scripts Sucralfate (SUCRALFATE) 1 Gm Tablet, 1 GM PO QID, #120 TAB Prov:ANTONIO ARMSTRONGP 12/18/18 Pantoprazole Sodium (PANTOPRAZOLE SODIUM) 40 Mg Tablet.dr, 40 MG PO BID, #60 TAB Prov:ANTONIO ARMSTRONG [facility] 12/18/18 Ferrous Sulfate (FERROUS SULFATE) 325 Mg Tablet, 325 MG PO QODAY, #15 TAB Prov:ANTONIO ARMSTRONG [facility] 12/18/18 Ascorbic Acid (VITAMIN C) 500 Mg Tablet, 250 MG PO QODAY, #15 TAB Prov:ANTONIO ARMSTRONG [facility] 12/18/18 Losartan/Hydrochlorothiazide (LOSARTAN-HCTZ 100-25 MG TAB) 1 Each Tablet, 1 EACH PO QDAY for 90 Days, #90 TAB Prov:ADRIENNE REYES MD 12/03/18 Reported Medications Calcium Carbonate/Vitamin D3 (Calcium 600 + Vit D 800 Tab) 1 Each Tablet, 1 TAB PO DAILY 09/17/18 Acetaminophen 500 Mg Tab (ACETAMINOPHEN EXTRA STRENGTH) 500 Mg Tablet, 2 TAB PO BID, TAB 09/03/18 Diet: Regular Activity: As Tolerated Special Instructions: Take Vitamin C and Iron Every other day to help with Anemia. Take Protonix and Carafate to help with GI bleed. Follow up with Dr. Reyes next week after labs on Saturday regarding anemia. Follow up with Dr. Unger in 1-2 weeks regarding GI Bleed. Copies to: ADRIENNE REYES MD; ANNELIESE UNGER ; Venous Thromboembolism Antithrombotics Is Pt On Any Antithrombotics?: No Problem Qualifiers (1) Hypertension: Hypertension type: essential hypertension Qualified Codes: I10 - Essential (primary) hypertension ANTONIO ARMSTRONG [facility] Dec 18, 2018 12:59
== END 2018-12-18 14:02 | disposition home or self-care (01) | DRG 378 ==
LOC: ER 08:57 → MED 11:35
PROVIDERS: ADMIT Internal Medicine; ATTEND Internal Medicine
PROC: 0W3P8ZZ Control Bleeding in Gastrointestinal Tract, Via Natural or Artificial Opening Endoscopic (ICD-10-PCS; principal; 2018-12-15)
PROC: 30233N1 Transfusion of Nonautologous Red Blood Cells into Peripheral Vein, Percutaneous Approach (ICD-10-PCS; 2018-12-16)
DX: K28.4 Chronic or unspecified gastrojejunal ulcer with hemorrhage (principal); D62 Acute posthemorrhagic anemia; K92.1 Melena; I10 Essential (primary) hypertension; Z86.711 Personal history of pulmonary embolism; Z90.5 Acquired absence of kidney
CPT/HCPCS: 36415; 74176; 81001; 82040; 82247; 82274; 82310; 82374; 82435; 82565; 82947; 84075; 84132; 84155; 84295; 84450; 84460; 84520; 85025; 85610; 85730; 86850; 86900; 86901; 86920; 96365; 99284; C9113; J1940; J2704; J3490; J7030; J7040; J7050; P9016

== ENCOUNTER → 2018-12-22 | Outpatient (CLI) | payer MEDICARE, BC ==
[2018-12-16 09:32] VITALS: BMI 25.5
[~2018-12-22] MED LIST changes: +ASCO-182 PO; +FERR-53 PO; +SUCR1TAB51 PO
[2018-12-23 14:35] LABS: PLATELET COUNT, AUTOMATED 328 K/uL (150-450)
== END ==
LOC: LAB 10:16
PROVIDERS: ATTEND Nurse Practitioner Family
DX: D64.9 Anemia, unspecified (principal)
CPT/HCPCS: 36415; 82310; 82374; 82435; 82565; 82947; 84132; 84295; 84520; 85025

== ENCOUNTER 2019-01-13 01:06 | Day surgery (SDC) | payer MEDICARE, BC ==
[2018-12-16 09:32] VITALS: Ht 171.4 cm; Wt 70.8 kg
[~2019-01-13] VITALS: Ht 171.4 cm; Wt 70.8 kg
[2019-01-13 09:24] VITALS: BP 136/67
[2019-01-13] MEDS ORDERED: NORMOSOL R SOLN(*) 1000 ML BAG 1,000 ML IV PRN (10:00)
[2019-01-13] MEDS ORDERED: LIDOCAINE/SOD BICARB 8.4% SYR ID ONE (10:00)
[2019-01-13] MEDS ORDERED: LIDOCAINE MPF 1% 5 ML VIAL ONE (11:21)
[2019-01-13] MEDS ORDERED: PROPOFOL EMUL(*) 10MG/ML 20 ML 40 ML ONE (11:21)
[2019-01-13 12:27] VITALS: BP 106/55
--- NOTE | 2019-01-13 12:32 | Short(Outpt) Discharge Summary ---
Discharge Summary Reason for Hosp/Final Diag: (1) PUD (peptic ulcer disease) Status: Chronic Hospital Course & Plan: pt presented for upper endoscopy. she tolerated the procedure well and there were no complications. path pending. pt will be discharged home when criteria met. Departure Discharge to: Home Discharge Instructions Home Meds Active Scripts Pantoprazole Sodium (PANTOPRAZOLE SODIUM) 40 Mg Tablet.dr, 40 MG PO BID, #60 TAB Prov:ANTONIO ARMSTRONG [facility] 12/18/18 Ferrous Sulfate (FERROUS SULFATE) 325 Mg Tablet, 325 MG PO QODAY, #15 TAB Prov:ANTONIO ARMSTRONG [facility] 12/18/18 Ascorbic Acid (VITAMIN C) 500 Mg Tablet, 250 MG PO QODAY, #15 TAB Prov:ANTONIO ARMSTRONG [facility] 12/18/18 Losartan/Hydrochlorothiazide (LOSARTAN-HCTZ 100-25 MG TAB) 1 Each Tablet, 1 EACH PO QDAY for 90 Days, #90 TAB Prov:ADRIENNE REYES MD 12/03/18 Reported Medications Calcium Carbonate/Vitamin D3 (Calcium 600 + Vit D 800 Tab) 1 Each Tablet, 1 TAB PO DAILY 09/17/18 Acetaminophen 500 Mg Tab (ACETAMINOPHEN EXTRA STRENGTH) 500 Mg Tablet, 2 TAB PO BID, TAB 09/03/18 Diet: Regular Activity: As Tolerated Special Instructions: we will call you in 10 days with biopsy results. ANNELIESE SANTILLAN Jan 13, 2019 12:32
--- NOTE | 2019-01-13 12:38 | NUR ---
STEPHANIEAR TO ALEXIA RN
[2019-01-13 13:10] VITALS: BP 139/85
[2019-01-13 13:21] VITALS: BP 151/79
[2019-01-13 13:23] VITALS: BP 157/86
--- NOTE | 2019-01-13 13:44 | OPERATIVE REPORT 1 ---
EVENT DATE: January 13, 2019 SURGEON: Ravin Unger MD ANESTHESIOLOGIST: Juan Daniel Gonzalez MD ANESTHESIA: MAC. ROPE CUTTER: None. PREOPERATIVE DIAGNOSIS Recent upper gastrointestinal bleed. POSTOPERATIVE DIAGNOSIS Recent upper gastrointestinal bleed. PROCEDURE PERFORMED Upper endoscopy. FLUIDS IV crystalloid. ESTIMATED BLOOD LOSS Minimal. SPECIMENS 1. Body of stomach. 2. H. pylori. COMPLICATIONS None. INDICATIONS This is an 83-year old female recently hospitalized with an upper GI bleed. EGD found an ulcer between the efferent and afferent jejunal limbs at the anastomosis of the jejunum and stomach. This was cauterized. Patient has done well since that time. She had some dark stool about a week ago. However, this resolved and she believes that was due to iron. The purpose of the procedure today is to re-evaluate the ulcer and take biopsies. Risks and benefits of the procedure were explained and consent was signed. DESCRIPTION OF PROCEDURE The patient was taken to the GI suite and place in the supine position. MAC anesthesia was administered per the Anesthesia team. Patient was placed in the left lateral position and bite block was placed. Scope was advanced through the oropharynx, down the esophagus and into the stomach. The patient had a gastrectomy with a gastrojejunal anastomosis. There was mild inflammation at the anastomosis. I could see where the ulcer was. There was a tiny amount of oozing after I passed the scope over the area but the ulcer is healing very nicely. There is now just a very shallow linear ulcer that shows good signs of healing. Biopsies were taken from the body of the stomach for histology and H. pylori. The scope was slowly withdrawn. The patient has a small hiatal hernia. There were some mild esophageal varices in the mid and distal esophagus. The scope was withdrawn. The patient tolerated the procedure well and there were no complications. [facility]
== END 2019-01-13 13:30 | disposition home or self-care (01) ==
LOC: OR 01:06
PROVIDERS: ATTEND Surgery
DX: K92.2 Gastrointestinal hemorrhage, unspecified (principal); K44.9 Diaphragmatic hernia without obstruction or gangrene
CPT/HCPCS: 43239; 87077; 88305; 88344; J2001; J2704

== ENCOUNTER → 2019-01-14 | Outpatient (CLI) | payer MEDICARE, BC ==
[2018-12-16 09:32] VITALS: BMI 25.5
[2019-01-14 11:13] LABS: PLATELET COUNT, AUTOMATED 275 K/uL (150-450)
== END ==
LOC: LAB 10:50
PROVIDERS: ATTEND Family Medicine
DX: D64.9 Anemia, unspecified (principal); I10 Essential (primary) hypertension; R53.83 Other fatigue
CPT/HCPCS: 36415; 82310; 82374; 82435; 82565; 82947; 84132; 84295; 84520; 85025

== ENCOUNTER → 2019-02-11 | Outpatient (CLI) | payer MEDICARE, BC ==
[2018-12-16 09:32] VITALS: BMI 25.5
[~2019-02-11] MED LIST changes: +PANT20TA27 PO
[2019-02-11 11:19] LABS: PLATELET COUNT, AUTOMATED 311 K/uL (150-450)
== END ==
LOC: LAB 11:01
PROVIDERS: ATTEND Family Medicine
DX: I10 Essential (primary) hypertension (principal)
CPT/HCPCS: 36415; 82310; 82374; 82435; 82565; 82947; 84132; 84295; 84520; 85025

== ENCOUNTER → 2019-03-25 | Outpatient (CLI) | payer MEDICARE, BC ==
[2018-12-16 09:32] VITALS: BMI 25.5
[~2019-03-25] MED LIST changes: +VIT1CAPS9 PO
[2019-03-25 12:49] LABS: PLATELET COUNT, AUTOMATED 311 K/uL (150-450)
== END ==
LOC: LAB 12:34
PROVIDERS: ATTEND Family Medicine
DX: I10 Essential (primary) hypertension (principal); R53.83 Other fatigue
CPT/HCPCS: 36415; 82040; 82247; 82306; 82310; 82374; 82435; 82565; 82607; 82947; 84075; 84132; 84155; 84295; 84443; 84450; 84460; 84520; 85025

== ENCOUNTER → 2019-04-29 | Outpatient (CLI) | payer MEDICARE, BC ==
[2018-12-16 09:32] VITALS: BMI 25.5
[~2019-04-29] MED LIST changes: +FURO-45 PO; +LOSA100T75 PO
== END ==
LOC: LAB 12:52
PROVIDERS: ATTEND Family Medicine
DX: I10 Essential (primary) hypertension (principal)
CPT/HCPCS: 36415; 82310; 82374; 82435; 82565; 82947; 84132; 84295; 84520